=== PATIENT | male | born 1935 | race Caucasian/White ===

== ENCOUNTER 2017-03-04 09:03 | Outpatient (CLI) | payer MEDICARE, OTHER | END 2017-03-04 09:04 | disposition critical access hospital (66) | LOC: EMS 09:03 | PROVIDERS: ATTEND Surgery | DX: R55 Syncope and collapse (principal) | CPT/HCPCS: A0425; A0427 ==

== ENCOUNTER 2017-03-04 09:25 | Emergency (ER) | payer MEDICARE, OTHER ==
--- NOTE | 2017-03-04 09:46 | ED Physician Documentation ---
History of Present Illness - Stated complaint Stated Complaint: SYNCOPE - Chief complaint Chief Complaint: Neuro - Additonal information Additional information: hx from pt and EMS 81 male was fasting for blood work this AM - has appt with PMD to [facility] RLE swelling X 2 weeks went to scientology with and friends syncope while sitting in chair EMS arrived and found pt orthostatic given IVF now he feels fine denies fall no fever no cough no NVD no new urinary sx (see a urologist for chronic troubles ) no CP SOA abd pain Review of Systems Constitutional: denies: Fever, Chills Throat: denies: Sore throat Cardiac: denies: Chest pain / pressure, Palpitations Respiratory: denies: Dyspnea, Cough GI: denies: Abdominal Pain, Nausea, Vomiting, Diarrhea Musculoskeletal: reports: Extremity swelling (L chronic R new X 2 wk per EMS) Neurologic: reports: Syncope. denies: Generalized weakness, Altered mental status, Head injury Endocrine: denies: Easy bruising / bleeding Immunocompromised: denies: Immunocompromised PD PAST MEDICAL HISTORY - Past Medical History Cardiovascular: Hypertension, High cholesterol GI: GERD Musculoskeletal: Rheumatoid arthritis - Past Surgical History Past Surgical History: Yes Ortho: Hip replacement - Present Medications Home Medications: Ambulatory Orders Medication Instructions Recorded Confirmed Aspirin 1 tab PO DAILY 05/11/16 05/11/16 Esomeprazole Magnesium [Nexium] 1 cap PO DAILY 05/11/16 05/11/16 Finasteride 1 tab PO DAILY 05/11/16 05/11/16 Fluticasone [Flonase] 1 spray NS DAILY 05/11/16 05/11/16 Furosemide [Lasix] 20 mg PO DAILY 05/11/16 05/11/16 Ibuprofen [Motrin] 1 tab PO TID 05/11/16 05/11/16 Resveratrol 100 mg PO DAILY 05/11/16 Simvastatin [Zocor] 20 mg PO DAILY 05/11/16 05/11/16 Telmisartan [Micardis] 1 tab PO QID 05/11/16 05/11/16 amLODIPine [Norvasc] 1 tab PO BID 05/11/16 05/11/16 Cephalexin [Keflex] 500 mg PO Q6H #28 capsule 03/04/17 - Allergies Allergies/Adverse Reactions: Allergies Allergy/AdvReac Type Severity Reaction Status Date / Time No Known Drug Allergies Allergy Verified 05/11/16 20:55 - Social History Does the pt smoke?: No Smoking Status: Never smoker Does the pt drink ETOH?: No Does the pt have substance abuse?: No - Immunizations Immunizations are current?: No - POLST Patient has POLST: No PD ED PE NORMAL - Vitals Vital signs reviewed: Yes - General General: Other (alert cooperative oriented cheeerful) - HEENT HEENT: Atraumatic - Neck Neck: Supple, no meningeal sign - Cardiac Cardiac: RRR - Respiratory Respiratory: No respiratory distress, Clear bilaterally - Abdomen Abdomen: Soft, Non tender - Derm Derm: Normal color - Extremities Extremities: No deformity, Other (mild benjamín edema, non tender, per EMS RLE is new) - Neuro Neuro: Other (alert, moving all 4 ext) Results - Vitals Vitals: Vital Signs - 24 hr 03/04/17 03/04/17 09:28 11:41 Temperature 36.5 C Heart Rate 65 77 Respiratory 16 16 Rate Blood Pressure 139/73 H 124/61 O2 Saturation 97 97 Oxygen O2 Source Room air - EKG (time done) 1101 Rate: Rate (enter#) (67) Rhythm: NSR Intervals: Wide QRS (boerderline) Ischemia: Q waves (borderline but much less than half R-R) - Labs Labs: Laboratory Tests 03/04/17 03/04/17 03/04/17 09:46 10:40 10:48 WBC 5.3 RBC 3.66 L Hgb 11.6 L Hct 32.8 L MCV 89.6 MCH 31.7 H MCHC 35.4 RDW 13.6 Plt Count 136 MPV 8.3 Neut # 3.0 Lymph # 1.3 L [place] # 0.7 Eos # 0.3 Baso # 0.0 Absolute Nucleated RBC 0.00 Nucleated RBCs 0.0 Sodium 131 L Potassium 3.9 Chloride 97 L Carbon Dioxide 26 Anion Gap 8.0 BUN 19 Creatinine 1.3 H Estimated GFR (MDRD) 53 L Glucose 116 H Calcium 9.1 Urine Color YELLOW Urine Clarity SL. CLOUDY Urine pH 6.0 Ur Specific [place] <=1.005 Urine Protein NEGATIVE Urine Glucose (UA) NEGATIVE Urine Ketones NEGATIVE Urine Occult Blood NEGATIVE Urine Nitrite NEGATIVE Urine Bilirubin NEGATIVE Urine Urobilinogen 0.2 (NORMAL) Ur Leukocyte Esterase TRACE H Urine RBC 0-5 Urine WBC 11-25 H Urine WBC Clumps PRESENT Ur Squamous Epith Cells NONE SEEN Urine Bacteria Few Ur Microscopic Review INDICATED Urine Culture Comments INDICATED - Rads (name of study) doppler Radiology: See rad report (neg) Departure - Departure Disposition: Home, Self Care Clinical Impression: Dehydration, Orthostatic syncope UTI (urinary tract infection) Qualifiers: Urinary tract infection type: acute cystitis Hematuria presence: without hematuria Qualified Code(s): N30.00 - Acute cystitis without hematuria Condition: Good Instructions: ED UTI Cystitis Male, ED Dehydration, Syncope Causes Follow-Up: Vahid Naranjo MD [Primary Care Provider] - Prescriptions: Cephalexin [Keflex] 500 mg PO Q6H #28 capsule Comments: You were dehydrated and your blood pressure was low and we think that is why you passed out at scientology You are feeling better after IV fluids Your lab work was reassuring except for mild anemia which is not new and some mild renal insufficiency which you should see your doctor about. Your EKG was a regular rhythm but did show a slightly prolonged QT interval which you should also follow up with your doctor about - sometimes some of your medications need to be stopped or adjusted to prevent this from occurring or worsening You do not have a blood clot in your leg. And you have a urine infection so I have prescribed an antibiotic
[2017-03-04 09:52] LABS: BASOPHILS % (AUTO) 0.8 %; EOSINOPHILS # (AUTO) 0.3 10^3/uL (0.0-0.7); EOSINOPHILS % (AUTO) 5.7 %; HCT - HEMATOCRIT 32.8 % (42.0-52.0); HGB - HEMOGLOBIN 11.6 g/dL (14.0-18.0); LYMPHOCYTES # (AUTO) 1.3 10^3/uL (1.5-3.5); MEAN CORPUSCULAR HEMOGLOBIN 31.7 pg (27.0-31.0); MEAN CORPUSCULAR HGB CONC 35.4 g/dL (32.0-36.0); MEAN CORPUSCULAR VOLUME 89.6 fL (80.0-94.0); MEAN PLATELET VOLUME 8.3 fL (7.4-11.4); MONOCYTES # (AUTO) 0.7 10^3/uL (0.0-1.0); MONOCYTES % (AUTO) 13.7 %; NEUTROPHILS % (AUTO) 55.8 %; RED BLOOD COUNT 3.66 10^6/uL (4.70-6.10); RED CELL DISTRIBUTION WIDTH 13.6 % (12.0-15.0); UNCORRECTED WHITE BLOOD COUNT 5.3 x10^3/uL; WHITE BLOOD COUNT 5.3 x10^3/uL (4.8-10.8)
--- NOTE | 2017-03-04 10:44 | Ultrasound Report ---
RIGHT LEG VENOUS DUPLEX: 03/04/2017 CLINICAL INDICATION: Right leg swelling for two weeks. TECHNIQUE: Real-time sonographic vascular imaging was performed by the anesthesiologist physician through the right lower extremity utilizing both color flow and Doppler spectral analysis. Multiple textile machinery sales representative stat ic images were saved for review. FINDINGS: A right lower extremity venous sonogram is performed revealing the common femoral, superfic ial femoral, profunda femoris, and popliteal veins to be adequately visualized without intraluminal d efects. There is normal venous compression, augmentation, phasicity, and spontaneity of venous flow. In the calf, the visualized more cephalad portions of posterior tibial and peroneal veins are grossly compressible, without filling defects. IMPRESSION: NO EVIDENCE OF DEEP VENOUS THROMBOSIS. JOB #: [id number] EXT JOB #:[id number]
[2017-03-04 10:58] LABS: CALCIUM 9.1 mg/dL (8.5-10.3); CREATININE 1.3 mg/dL (0.6-1.2); POTASSIUM 3.9 mmol/L (3.5-5.0)
[2017-03-04 11:03] LABS: BILIRUBIN,URINE NEGATIVE (NEGATIVE)
[2017-03-04 11:04] LABS: UA w/ MICROSCOPIC CHARGE YES
[2017-03-04 11:17] LABS: UR CULTURE IF IND INDICATED
[2017-03-04 12:35] VITALS: BP 113/64
== END 2017-03-04 12:34 | disposition home or self-care (01) ==
LOC: EDUNIT# → ED 09:25
DX: R55 Syncope and collapse (principal); N30.00 Acute cystitis without hematuria; I10 Essential (primary) hypertension; E78.00 Pure hypercholesterolemia, unspecified; K21.9 Gastro-esophageal reflux disease without esophagitis; M06.9 Rheumatoid arthritis, unspecified; Z79.82 Long term (current) use of aspirin
CPT/HCPCS: 36415; 80048; 81001; 81003; 85025; 87086; 93005; 93010; 99284

== ENCOUNTER 2017-09-01 17:55 | Outpatient (CLI) | payer MEDICARE, OTHER | END 2017-09-01 17:56 | disposition critical access hospital (66) | LOC: EMS 17:55 | PROVIDERS: ATTEND Surgery | DX: R40.4 Transient alteration of awareness (principal) | CPT/HCPCS: A0425; A0429 ==

== ENCOUNTER 2017-09-01 18:00 | Emergency (ER) | payer MEDICARE, OTHER ==
[2017-09-01] MEDS ORDERED: SODIUM CHLORIDE 0.9% 1,000 ML IV ONE ×2 (18:21→18:50)
[2017-09-01 18:27] LABS: BASOPHILS % (AUTO) 0.4 %; EOSINOPHILS # (AUTO) 0.3 10^3/uL (0.0-0.7); EOSINOPHILS % (AUTO) 3.6 %; HCT - HEMATOCRIT 28.9 % (42.0-52.0); LYMPHOCYTES # (AUTO) 1.1 10^3/uL (1.5-3.5); LYMPHOCYTES % (AUTO) 14.8 %; MEAN CORPUSCULAR HEMOGLOBIN 30.9 pg (27.0-31.0); MEAN CORPUSCULAR HGB CONC 34.7 g/dL (32.0-36.0); MEAN PLATELET VOLUME 7.1 fL (7.4-11.4); MONOCYTES % (AUTO) 13.3 %; NEUTROPHILS % (AUTO) 67.9 %; RED BLOOD COUNT 3.25 10^6/uL (4.70-6.10); RED CELL DISTRIBUTION WIDTH 13.5 % (12.0-15.0); UNCORRECTED WHITE BLOOD COUNT 7.3 x10^3/uL; WHITE BLOOD COUNT 7.3 x10^3/uL (4.8-10.8)
[2017-09-01 18:42] LABS: ALBUMIN/GLOBULIN RATIO 0.9 (1.0-2.2); BILIRUBIN,TOTAL 1.1 mg/dL (0.2-1.0); CALCIUM 8.6 mg/dL (8.5-10.3); CREATININE 0.8 mg/dL (0.6-1.2); POTASSIUM 3.7 mmol/L (3.5-5.0); TOTAL PROTEIN 6.3 g/dL (6.7-8.2)
--- NOTE | 2017-09-01 18:53 | ED Physician Documentation ---
PD HPI SYNCOPE - Stated complaint Stated Complaint: SYNCOPE - Chief complaint Chief Complaint: Neuro - History obtained from History obtained from: Patient, Family, EMS - History of Present Illness Witnessed: Witnessed Timing - onset: Today Duration: Seconds (30) Preceding symptoms: Light headed, Generalized weakness Associated symptoms: No: Seizure, Incontinant of urine, Incontinant of stool, Headache, Vision changes, Chest pain, Palpitations Injury occurred: No: Fell, Head injury, Neck injury Pain level max: 0 Pain level now: 0 Similar symptoms before: Diagnosis (Patient also has an episode of vasovagal syncope approximately 6 months ago.) - Additional information Additional information: Patient is an 82-year-old gentleman who is one-week status post a 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 This was performed [facility]. He was doing physical therapy today, began to feel lightheaded and dizzy, began to be shaky and was laid down on the ground by the rehab facility. They took his blood pressure and it was 60 systolic. Unclear if he actually passed out or not, but does not sound like he ever actually lost consciousness. EMS arrived and his blood pressure started to increase. He currently feels well and is asymptomatic. Review of Systems Ten Systems: 10 systems reviewed and negative Constitutional: denies: Fever, Chills Ears: denies: Ear pain Nose: denies: Rhinorrhea / runny nose, Congestion Throat: denies: Sore throat Cardiac: denies: Chest pain / pressure, Palpitations Respiratory: denies: Dyspnea, Cough, Hemoptysis, Wheezing GI: denies: Abdominal Pain, Nausea, Vomiting, Diarrhea Skin: denies: Rash Musculoskeletal: denies: Neck pain, Back pain Neurologic: denies: Focal weakness, Numbness, Confused, Altered mental status, Headache PD PAST MEDICAL HISTORY - Past Medical History Cardiovascular: Hypertension, High cholesterol GI: GERD Musculoskeletal: Rheumatoid arthritis - Past Surgical History Past Surgical History: Yes Ortho: Hip replacement - Present Medications Home Medications: Ambulatory Orders Medication Instructions Recorded Confirmed Aspirin 1 tab PO DAILY 05/11/16 05/11/16 Esomeprazole Magnesium [Nexium] 1 cap PO DAILY 05/11/16 05/11/16 Finasteride 1 tab PO DAILY 05/11/16 05/11/16 Fluticasone [Flonase] 1 spray NS DAILY 05/11/16 05/11/16 Furosemide [Lasix] 20 mg PO DAILY 05/11/16 05/11/16 Ibuprofen [Motrin] 1 tab PO TID 05/11/16 05/11/16 Resveratrol 100 mg PO DAILY 05/11/16 Simvastatin [Zocor] 20 mg PO DAILY 05/11/16 05/11/16 Telmisartan [Micardis] 1 tab PO QID 05/11/16 05/11/16 amLODIPine [Norvasc] 1 tab PO BID 05/11/16 05/11/16 Cephalexin [Keflex] 500 mg PO Q6H #28 capsule 03/04/17 - Allergies Allergies/Adverse Reactions: Allergies Allergy/AdvReac Type Severity Reaction Status Date / Time No Known Drug Allergies Allergy Verified 09/01/17 19:29 - Social History Does the pt smoke?: No Smoking Status: Never smoker Does the pt drink ETOH?: No Does the pt have substance abuse?: No - Immunizations Immunizations are current?: No - POLST Patient has POLST: No PD ED PE NORMAL - Vitals Vital signs reviewed: Yes - General General: Alert and oriented X 3, No acute distress, Well developed/nourished - HEENT HEENT: Atraumatic, PERRL, Moist mucous membranes - Neck Neck: Supple, no meningeal sign, No bony TTP - Cardiac Cardiac: RRR, Strong equal pulses - Respiratory Respiratory: No respiratory distress, Clear bilaterally - Abdomen Abdomen: Soft, Non tender, Non distended - Back Back: No spinal TTP - Derm Derm: Warm and dry - Extremities Extremities: No edema, No calf tenderness / cord - Neuro Neuro: Alert and oriented X 3, professor of communication 2-12 intact, No motor deficit, No sensory deficit, Normal speech Eye Opening: Spontaneous Motor: Obeys Commands Verbal: Oriented GCS Score: 15 - Psych Psych: Normal mood, Normal affect Results - Vitals Vitals: Oxygen O2 Source Room air - EKG (time done) 1805 Rate: Rate (enter#) (79) Rhythm: NSR [place]: Normal Intervals: Normal FL, RBBB - Labs Labs: Laboratory Tests 09/01/17 09/01/17 09/01/17 18:22 18:22 18:22 WBC 7.3 RBC 3.25 L Hgb 10.0 L Hct 28.9 L MCV 89.0 MCH 30.9 MCHC 34.7 RDW 13.5 Plt Count 207 MPV 7.1 L Neut # 5.0 Lymph # 1.1 L [place] # 1.0 Eos # 0.3 Baso # 0.0 Absolute Nucleated RBC 0.00 Nucleated RBC % 0.0 Sodium 125 L Potassium 3.7 Chloride 88 L Carbon Dioxide 24 Anion Gap 13.0 BUN 12 Creatinine 0.8 Estimated GFR (MDRD) 93 Glucose 126 H Calcium 8.6 Total Bilirubin 1.1 H AST 29 ALT 20 Alkaline Phosphatase 49 Troponin I < 0.04 Total Protein 6.3 L Albumin 3.0 L Globulin 3.3 Albumin/Globulin Ratio 0.9 L Lipase 36 Urine Color Urine Clarity Urine pH Ur Specific [place] Urine Protein Urine Glucose (UA) Urine Ketones Urine Occult Blood Urine Nitrite Urine Bilirubin Urine Urobilinogen Ur Leukocyte Esterase Ur Microscopic Review Urine Culture Comments 09/01/17 19:10 WBC RBC Hgb Hct MCV MCH MCHC RDW Plt Count MPV Neut # Lymph # [place] # Eos # Baso # Absolute Nucleated RBC Nucleated RBC % Sodium Potassium Chloride Carbon Dioxide Anion Gap BUN Creatinine Estimated GFR (MDRD) Glucose Calcium Total Bilirubin AST ALT Alkaline Phosphatase Troponin I Total Protein Albumin Globulin Albumin/Globulin Ratio Lipase Urine Color YELLOW Urine Clarity CLEAR Urine pH 7.0 Ur Specific [place] 1.010 Urine Protein NEGATIVE Urine Glucose (UA) NEGATIVE Urine Ketones NEGATIVE Urine Occult Blood NEGATIVE Urine Nitrite NEGATIVE Urine Bilirubin NEGATIVE Urine Urobilinogen 0.2 (NORMAL) Ur Leukocyte Esterase NEGATIVE Ur Microscopic Review NOT INDICATED Urine Culture Comments NOT INDICATED PD MEDICAL DECISION MAKING - ED course Complexity details: reviewed old records, reviewed results, re-evaluated patient , considered differential (No ST elevation [place], no aortic dissection, no PE, no tension pneumothorax, no aortic aneurysm), d/w patient, d/w family ED course: Patient is an 82-year-old gentleman that presents to the emergency department with what appears to be near syncope versus syncope today. He was given IV fluids and feels much better. Blood pressure normalized. He is well-appearing , nontoxic. Afebrile. No acute laboratory findings. No acute findings on EKG or telemetry. Does not wish to stay in the hospital for telemetry monitoring at this time and I think this is reasonable. Will follow up with his doctor for further evaluation and care. Patient also found to be mildly hyponatremic from his baseline, given IV fluids and this should improve with the IV fluids. Can be retested with his doctor. Patient counseled regarding signs and symptoms for which I believe and urgent re-evaluation would be necessary. Patient with good understanding of and agreement to plan and is comfortable going home at this time This document was made in part using voice recognition software. While efforts are made to proofread this document, sound alike and grammatical errors may occur. Departure - Departure Disposition: 01 Home, Self Care Clinical Impression: Orthostatic syncope, Hyponatremia, Dehydration Condition: Good Instructions: ED Syncope Vasovagal Follow-Up: Vahid Naranjo MD [Primary Care Provider] - Within 3 Days Comments: Drink plenty of fluids and make sure you are eating. Return if you worsen. Discharge Date/Time: 09/01/17 20:00
[2017-09-01 19:56] LABS: BILIRUBIN,URINE NEGATIVE (NEGATIVE)
[2017-09-01 20:00] LABS: UA CHARGE (STRIP ONLY) YES; UR CULTURE IF IND NOT INDICATED
[2017-09-01 20:08] VITALS: BP 167/83
== END 2017-09-01 20:00 | disposition home or self-care (01) ==
LOC: EDBD → ED 18:00
DX: R55 Syncope and collapse (principal); E86.0 Dehydration; E87.1 Hypo-osmolality and hyponatremia; I10 Essential (primary) hypertension; E78.00 Pure hypercholesterolemia, unspecified; K21.9 Gastro-esophageal reflux disease without esophagitis; M06.9 Rheumatoid arthritis, unspecified; Z79.82 Long term (current) use of aspirin; Z96.641 Presence of right artificial hip joint
CPT/HCPCS: 36415; 80053; 81001; 81003; 83690; 84484; 85025; 87086; 93005; 96360; 96361; 99284

== ENCOUNTER 2018-05-21 10:44 | Outpatient (CLI) | payer MEDICARE, OTHER | END 2018-05-21 10:45 | disposition short-term general hospital (02) | LOC: EMS 10:44 | PROVIDERS: ATTEND Surgery | DX: R55 Syncope and collapse (principal) | CPT/HCPCS: A0425; A0427; A0888 ==

== ENCOUNTER 2020-04-08 17:11 | Outpatient (CLI) | payer MEDICARE, OTHER | END 2020-04-08 17:12 | disposition critical access hospital (66) | LOC: EMS 17:11 | PROVIDERS: ATTEND Surgery | DX: M79.632 Pain in left forearm (principal); W10.9XXA Fall (on) (from) unspecified stairs and steps, initial encounter; Y93.01 Activity, walking, marching and hiking; Y92.008 Other place in unspecified non-institutional (private) residence as the place of occurrence of the external cause | CPT/HCPCS: A0425; A0429 ==

== ENCOUNTER 2022-06-09 19:47 | Outpatient (CLI) | payer MEDICARE, OTHER | END 2022-06-09 19:48 | disposition short-term general hospital (02) | LOC: EMS 19:47 | DX: R07.89 Other chest pain (principal) | CPT/HCPCS: A0425; A0427; A0888 ==

== ENCOUNTER 2023-05-18 16:35 | Emergency (ER) | payer MEDICARE, OTHER ==
--- OUTSIDE RECORDS SUMMARY | 2023-05-18 17:40 | EXTERNAL MEDICAL SUMMARY RPT | Continuity of Care Document ---
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
[2023-05-19 10:59] VITALS: BP 160/86; O2SAT 96
== END 2023-05-18 18:07 | disposition left against medical advice (07) ==
LOC: ED 16:35
DX: Z53.21 Procedure and treatment not carried out due to patient leaving prior to being seen by health care provider (principal)

== ENCOUNTER 2025-01-02 15:22 | Inpatient (IN) ==
--- OUTSIDE RECORDS SUMMARY | 2025-01-02 15:46 | EXTERNAL MEDICAL SUMMARY RPT | Continuity of Care Document ---
Author Organization [facility] Address [address] [place] [id number] Phone Care Team Providers Care Edge Molder Name Role Phone Unavailable Unavailable Unavailable Vahid Naranjo Unavailable Unavailable Medications date description facility 2024-12-21 00:00 Amlodipine [facility] 2024-12-21 00:00 Sodium Chloride [facility] 2024-12-21 00:00 Metoprolol Succinate [facility] Problems date description facility 2024-10-09 11:01 Encounter for observ ation for other suspected diseases and conditions ruled out [facility] 2024-11-12 10:42 Weakness [facility] 2024-11-12 10:42 Encounter for examin ation and observation following other accident [facility] 2024-12-15 00:00 Hypertension [facility] 2024-12-15 00:00 Subarachnoid hemorrhage [facility] 2024-12-15 00:00 Intraparenchymal hemorrhage of brain [facility] 2024-12-16 11:45 Nontraumatic intracranial hemor rhage, unspecified [facility] 2024-12-17 10:52 [facility] 2024-12-17 12:09 Nontraumatic intracranial hemor rhage, unspecified [facility] 2024-12-17 19:24 Nontraumatic intracranial hemor rhage, unspecified [facility] 2024-12-18 10:29 Nontraumatic intracranial hemor rhage, unspecified [facility] 2024-12-18 15:47 Nontraumatic intracranial hemor rhage, unspecified [facility] 2024-12-19 16:24 Nontraumatic intracranial hemor rhage, unspecified [facility] 2024-12-21 10:28 Nontraumatic intracranial hemor rhage, unspecified [facility] 2024-12-21 13:29 Nontraumatic intracranial hemor rhage, [facility] Procedures date description facility 2024-12-15 00:00 Computed tomography of head or brain without contrast [facility] 2024-12-17 00:00 Computed tomography of head or brain without contrast [facility] 2024-12-15 00:00 X-ray of chest, single view [facility] 2024-12-15 00:00 Computed tomography of cervical spine without contrast [facility] Results/Labs test date facility value unit notes Result panel 1 [facility] TEST [facility] 2024-09-28 15:05 [facility] COMMENT (missing) [id number] AMIODARONE [id number] AMIODARONE Test Ordered: [id number] AMIODARONE (CORDARONE), S/P AMIODARONE 543 [L ] ng/mL MX Reference Range: 7846-3455 DESETHYLAMIODARONE 667 ng/mL MX Reference Range: . Note: To convert from ng/ml to ug/ml, divide the result by 1000. Reference range (amiodarone): 1.00-2.50 ug/mL. This test was developed and its performance characteristics determined by [facility]. It has not been cleared or approved by the Food and Drug Administration. Performed at: [facility] [address] [place] [id number] Balance Wheel Arm Burnisher: Migdalia Read [facility], Phone: [phone] Performed at: [facility] [id number] Balance Wheel Arm Burnisher: Akin Parra MD, Phone: [phone] [facility] LAB ORDER 2024-09-28 15:[address] [place] [address] COMPLETE (missing) [id number] Amiodarone (Cordarone), Serum Result panel 2 NUCLEATED RED BLOOD CELLS AUTO 2024-11-08 :[address] [place] [address] 0.0 /100wbc (missing ) BASOPHILS # (AUTO) 2024-11-08 15:[address] [place] [address] 0.0 10 3/ul (missing) NRBC ABSOLUTE COUNT (AUTO) 2024-11-08 :[address] [place] [address] 0.00 x10 3/ul (missing ) EOSINOPHILS # (AUTO) 2024-11-08 :[address] [place] [address] 0.1 10 3/ul (missing) BILIRUBIN,TOTAL 2024-11-08 :[address] [place] [address] 0.5 m g/dl As of March 2023 testing method has changed, this may include reference ranges. MONOCYTES # (AUTO) 2024-11-[address] [place] [address] 0.8 10 3/ul (missing) ALBUMIN/GLOBULIN RATIO 2024-11-[address] [place] [address] 1.7 (missing) (missing) LYMPHOCYTES # (AUTO) 2024-11-[address] [place] [address] 1.8 10 3/ul (missing) CREATININE 2024-11-[address] [place] [address] 1.8 mg/dl As of March 2023 testing method has changed, this may include reference ranges. MEAN PLATELET VOLUME 2024-11-[address] [place] [address] 10.7 fl (missing) CHLORIDE 2024-11-[address] [place] [address] 100 mmol/l As of March 2023 testing method has changed, this may include reference ranges. ALT ALANINE AMINOTRANSFERASE 2024-11-[address] [place] [address] 12 iu/l As o f March 2023 testing method has changed, this may include reference ranges. HGB - HEMOGLOBIN 2024-11-[address] [place] [address] 12.6 g/dl (missing) GLUCOSE 2024-11-[address] [place] [address] 121 mg/dl As of March 2023 testing method has changed, this may include reference ranges. RED CELL DISTRIBUTION WIDTH 2024-11-[address] [place] [address] 13.0 % (missing ) SODIUM 2024-11-[address] [place] [address] 133 mmol/l As of March 2023 testing method has changed, this may include reference ranges. PLT - PLATELET COUNT 2024-11-[address] [place] [address] 146 10 3/ul (missing) AST ASPARTATE AMINOTRANSFERASE 2024-11-[address] [place] [address] 17 iu/l As o f March 2023 testing method has changed, this may include reference ranges. GLOBULIN 2024-11-[address] [place] [address] 2.2 g/dl (missing) CARBON DIOXIDE - CO2 2024-11-[address] [place] [address] 27 mmol/l As of March 2023 testing method has changed, this may include reference ranges. NEUTROPHILS # (AUTO) 2024-11-[address] [place] [address] 3.7 10 3/ul (missing) ALBUMIN 2024-11-[address] [place] [address] 3.8 g/dl As of March 2023 testing method has changed, this may include reference ranges. BUN - BLOOD UREA NITROGEN 2024-11-[address] [place] [address] 31 mg/dl As of 2022 testing method has changed, this may include reference ranges. MEAN CORPUSCULAR HEMOGLOBIN 2024-11-08 15:54 [facility] 31.3 pg (missing ) MEAN CORPUSCULAR HGB CONC 2024-11-08 15:54 [facility] 34.5 g/dl (missing ) GFR - MDRD 2024-11-08 15:54 [facility] 36 ([facility]) Social History date description facility 2024-12-15 00:00 Ex-smoker (finding) [facility] Vital Signs date measurement value units 2024-12-15 00:00 BMI 24.4 kg/m2 2024-12-15 00:00 BP_diastolic 82 mmHg 2024-12-15 00:00 BP_systolic 153 mmHg 2024-12-15 00:00 heart_rate 90 /min 2024-12-15 00:00 height_metric 182.88 cm 2024-12-15 00:00 height_standard 72 in 2024-12-15 00:00 o2_saturation 96 % 2024-12-15 00:00 respiration_rate 19 /min 2024-12-15 00:00 temperature_metric 36.33 C 2024-12-15 00:00 temperature_standard 97.4 F 2024-12-15 00:00 weight_metric 81.64 kg 2024-12-15 00:00 weight_standard 179.99 lb 2024-12-21 00:00 BP_diastolic 72 mmHg 2024-12-21 00:00 BP_systolic 142 mmHg 2024-12-21 00:00 heart_rate 75 /min 2024-12-21 00:00 o2_saturation 99 % 2024-12-21 00:00 respiration_rate 16 /min 2024-12-21 00:00 temperature_metric 36.33 C 2024-12-21 00:00 temperature_standard 97.4 F
[2025-01-02 16:41] LABS: BASOPHILS % (AUTO) 0.5 %; EOSINOPHILS % (AUTO) 0.5 %; HCT - HEMATOCRIT 33.4 % (42.0-52.0); LYMPHOCYTES % (AUTO) 15.7 %; MEAN CORPUSCULAR HGB CONC 35.9 g/dL (32.0-36.0); MEAN CORPUSCULAR VOLUME 89.1 fL (80.0-94.0); MEAN PLATELET VOLUME 10.5 fL (7.4-11.4); MONOCYTES # (AUTO) 0.8 10^3/uL (0.0-1.0); MONOCYTES % (AUTO) 12.7 %; NEUTROPHILS # (AUTO) 4.3 10^3/uL (1.5-6.6); NEUTROPHILS % (AUTO) 69.8 %; PLT - PLATELET COUNT 132 10^3/uL (130-450); RED BLOOD COUNT 3.75 10^6/uL (4.70-6.10); RED CELL DISTRIBUTION WIDTH 12.9 % (12.0-15.0); WHITE BLOOD COUNT 6.1 x10^3/uL (4.8-10.8)
--- NOTE | 2025-01-02 16:43 | XRAY Report ---
PROCEDURE: XR Chest 1V INDICATIONS: syncope TECHNIQUE: One view of the chest was acquired. COMPARISON: 11/08/2024. FINDINGS: Surgical changes and devices: None. Lungs and pleura: No pleural effusions or pneumothorax. No consolidation. Mediastinum: Mediastinal contours appear normal. Heart size is normal. Bones and chest wall: No suspicious bony lesions. Overlying soft tissues appear unremarkable. IMPRESSION: No acute cardiopulmonary process. Reviewed by: Abraham Barnett MD on 01/02/2025 4:42 PM PDT Approved by: Abraham Barnett MD on 01/02/2025 4:42 PM PDT Station ID: [id number]
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
[2025-01-02 16:48] LABS: ALBUMIN 3.7 g/dL (3.2-5.5); ALBUMIN/GLOBULIN RATIO 1.5 (1.0-2.2); BILIRUBIN,TOTAL 0.5 mg/dL (0.2-1.0); CALCIUM 8.8 mg/dL (8.5-10.3); CREATININE 1.2 mg/dL (0.6-1.3); POTASSIUM 3.1 mmol/L (3.5-4.5); TOTAL PROTEIN 6.2 g/dL (6.4-8.9)
[2025-01-02 16:56] LABS: TROPONIN I HIGH SENSITIVITY 13.3 ng/L (2.3-19.7)
[2025-01-02] MEDS: SODIUM CHLORIDE 0.9% 500 ML IV STA (18:20)
--- NOTE | 2025-01-02 18:30 | CT Report ---
PROCEDURE: CT Head WO INDICATIONS: fall 1 week ago, reported head bleed at [facility] TECHNIQUE: Noncontrast 4.5 mm thick angled axial sections acquired from the foramen magnum to the vertex. For r adiation dose reduction, the following was used: automated exposure control, adjustment of mA and/or kV according to patient size. COMPARISON: [facility] CT head 12/15/2024. FINDINGS: Image quality: Excellent. CSF spaces: Basal cisterns are patent. No extra-axial fluid collections. Ventricles are normal in size and shape. Brain: Mild residual intraparenchymal hemorrhage within the anteromedial left frontal lobe is signif icantly improved compared to prior outside study. Other areas of subarachnoid hemorrhage have resolve d. No midline shift. No intracranial mass effect. Serra-white matter interface is normal. Skull and face: Calvarium and visualized facial bones are intact, without suspicious lesions. Sinuses: Prior endoscopic sinonasal surgery with mild mucosal thickening. The mastoids are clear. IMPRESSION: 1.Mild residual intraparenchymal hemorrhage within the anteromedial left frontal lobe is significantl y improved compared to prior. Other areas of subarachnoid hemorrhage have resolved. 2.No new areas of intracranial hemorrhage. Reviewed by: Benson Sanon MD on 01/02/2025 6:28 PM PDT Approved by: Benson Sanon MD on 01/02/2025 6:28 PM PDT Station ID: [id number]
--- NOTE | 2025-01-02 19:59 | HISTORY & PHYSICAL EXAMINATION ---
Chief Complaint Chief Complaint Chief Complaint: syncope History of Present Illness Admitted From Admitted From:: [facility] History Obtained From Records Reviewed: [facility] patient records History obtained from: Patient- limited History of Present Illness HPI Comment/Other: 89-year-old male who presents to the emergency department with a syncopal episode. Recently admitted to [facility] on 12/21/2024. Exact reason for admission is unknown as there is no reliable historian at the bedside. In any event apparently has a history of orthostatic hypotension and recurrent syncope. However got up this afternoon had a bowel movement and as he was moving back over to bed had a syncopal event. Reportedly was hypotensive on scene. Therefore was transferred to the emergency department. Reportedly while in the emergency department had another syncopal episode when attempt was made to stand him upright. Did have orthostatic vital signs taken and these were not positive. EKG is unrevealing as has been telemetry since he has been in the emergency department. Patient is reportedly at his baseline mental status has not shown any other neurologic abnormalities. He is a very poor historian. He is oriented to self only. He does come to us with copy of a POLST which shows DNR selective treatment. His signed the POLST. Meds/Allgy Home Medications Ambulatory Orders Medication Instructions Recorded Confirmed Resveratrol 100 mg PO DAILY 05/11/16 amlodipine 5 mg tablet 1 tab PO BID 05/11/16 05/11/16 aspirin 81 mg chewable tablet 1 tab PO DAILY 05/11/16 05/11/16 esomeprazole magnesium 40 mg 1 cap PO DAILY 05/11/16 05/11/16 capsule,delayed release (Nexium) finasteride 5 mg tablet 1 tab PO DAILY 05/11/16 05/11/16 fluticasone propionate 50 1 spray NS DAILY 05/11/16 05/11/16 mcg/actuation nasal spray,suspension furosemide 20 mg tablet 20 mg PO DAILY 05/11/16 05/11/16 ibuprofen 600 mg tablet 1 tab PO TID 05/11/16 05/11/16 simvastatin 40 mg tablet (Zocor) 20 mg PO DAILY 05/11/16 05/11/16 telmisartan 40 mg tablet (Micardis) 1 tab PO QID 05/11/16 05/11/16 cephalexin 500 mg capsule (Keflex) 500 mg PO Q6H ##28 03/04/17 Allergies Allergies Allergy/AdvReac Type Severity Reaction Status Date / Time No Known Drug Allergies Allergy Verified 01/02/25 15:34 PFSH Active Problems All Active Problems (Updated 01/02/25 @ 21:[address]) Hypokalemia (Acute) Atrial fibrillation (Acute) Syncope (Acute) Fall (Acute) Weakness (Acute) Social History Social History Smoking Status: Never smoker Relationship: Do you feel safe in your home environment?: Yes Suffered physical, verbal, emotional, or financial abuse?: No History of Abuse: No POLST Patient has POLST: Yes POLST Status: DNR Review of Systems Status of ROS: unobtainable due to mental status Prior Level of Functionality: oriented to self only. it is unclear what his baseline ambulatory status is. Exam Exam Vital Signs: Vital Signs x48h Temp Pulse Pulse Pulse Resp BP BP 01/02/25 19:08 95 16 148/86 H 01/02/25 17:46 96 71 137/75 H 01/02/25 16:30 88 20 153/89 H 01/02/25 15:29 36.6 C 66 20 140/70 H BP Pulse Ox 01/02/25 19:08 98 01/02/25 17:46 134/88 H 01/02/25 16:30 94 01/02/25 15:29 98 Constitutional normal general appearance and no apparent distress HENMT normocephalic, hearing grossly normal bilaterally and oral mucous membranes normal Eyes PERRL and conjunctivae normal Neck/C-Spine visual inspection normal Lymph no lymphadenopathy noted Chest inspection of chest normal Respiratory breath sounds equal bilaterally, normal respiratory effort and clear to auscultation bilaterally Cardiovascular normal heart rate noted, regular rhythm noted and no bruits noted Gastrointestinal abdomen normal to inspection and abdomen soft to palpation Extremities normal to inspection, normal to palpation and no tenderness no pedal edema 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 GCS 14 ([id number]) Psychiatry oriented x3 (oriented to self. knows is [place]), cooperative and memory abnormal Pleasantly confused. Skin skin color normal and no rash Conclusion/Plan Problem List (1) Syncope: Plan: negative orthostatics in the ED. He did, however, syncopize again in the ED when he was placed upright. Discussed with Dr Mobley in the ED and decision was made to admit to OBS for further eval and treatment of his syncope. Will gently hydrate overnight with IVF, and repeat orthostatics and have PT/OT evaluation in the AM. I will keep the patient on telemetry monitoring and obtain an echocardiogram as well. Qualifiers: Syncope type: unspecified Qualified Code(s): R55 - Syncope and collapse (2) Atrial fibrillation: Plan: review of SNF med record reveals that he is on metoprolol for a fib. He is also on amiodarone. he is in SR here. will monitor on tele. review of further old ED visits shows that was previously on Eliquis, presumably dc'ed due to syncopal episodes and fall risk. IT appears that he has had syncopal episodes for quite some time, reviewing records, as far back as 2019 where an ED visit looks quite suspicious for a sycopal fall leading to ulnar shaft fracture. I will place the patient on telemetry and resume his metoprolol. (3) Hypokalemia: Plan: 3.1 on admit. oral KCL, 40mEq ordered. check BMP in the AM. Plan admit for syncope. PAtient with syncopal episode in the ED when he got up. Will need further treatment and evaluation before can be safely returned to previous living environment. I have spent 78 minutes in the care of this patient today. This includes time [id number], review and ordering of diagnostic imaging and laboratory studies and consultation with other providers. Monitoring the patient's signs symptoms, evaluation of medication effectiveness and patient's response to treatment. Lab Results Lab results reviewed: Yes 01/02/25 16:30 01/02/25 16:30 Core Measures Anticipated LOS I expect patient to be DC'd or transferred within 96 hours.: Yes DVT/VTE - Prophylaxis VTE/DVT Device ordered at admit?: Yes VTE/DVT Prophylaxis med ordered at admit?: Yes
[2025-01-02] MEDS ORDERED: ACETAMINOPHEN 325 MG TABLET PO PRN (20:24)
[2025-01-02] MEDS ORDERED: SODIUM CHLORIDE FLUSH 0.9% 10 ML SYRINGE IVP PRN (20:24)
[2025-01-02] MEDS ORDERED: ONDANSETRON 4 MG/2 ML VIAL IVP PRN (20:24)
[2025-01-02] MEDS: LACTATED RINGERS 1,000 ML IV SCH (21:11)
[2025-01-02] MEDS: HEPARIN 5,000 UNIT/ML VIAL SUBQ SCH (21:16)
[2025-01-02] MEDS: POTASSIUM CHLORIDE 20 MEQ TABLET PO ONE (21:46)
[2025-01-02] MEDS: SODIUM CHLORIDE FLUSH 0.9% 10 ML SYRINGE IVP SCH (23:36)
[2025-01-03 05:53] LABS: BASOPHILS % (AUTO) 0.4 %; EOSINOPHILS # (AUTO) 0.1 10^3/uL (0.0-0.7); EOSINOPHILS % (AUTO) 1.3 %; HCT - HEMATOCRIT 28.7 % (42.0-52.0); HGB - HEMOGLOBIN 10.3 g/dL (14.0-18.0); LYMPHOCYTES # (AUTO) 1.4 10^3/uL (1.5-3.5); LYMPHOCYTES % (AUTO) 26.5 %; MEAN CORPUSCULAR HEMOGLOBIN 31.7 pg (27.0-31.0); MEAN CORPUSCULAR HGB CONC 35.9 g/dL (32.0-36.0); MEAN CORPUSCULAR VOLUME 88.3 fL (80.0-94.0); MONOCYTES # (AUTO) 0.7 10^3/uL (0.0-1.0); MONOCYTES % (AUTO) 13.4 %; PLT - PLATELET COUNT 115 10^3/uL (130-450); RED BLOOD COUNT 3.25 10^6/uL (4.70-6.10); RED CELL DISTRIBUTION WIDTH 12.8 % (12.0-15.0); WHITE BLOOD COUNT 5.2 x10^3/uL (4.8-10.8)
[2025-01-03 06:10] LABS: CALCIUM 8.2 mg/dL (8.5-10.3); MAGNESIUM 1.7 mg/dL (1.7-2.3); POTASSIUM 2.8 mmol/L (3.5-4.5)
[2025-01-03] MEDS: AMIODARONE 200 MG TABLET PO SCH (08:29)
[2025-01-03] MEDS: METOPROLOL SUCCINATE 25 MG TABLET PO SCH (08:29)
[2025-01-03] MEDS: POTASSIUM CHLORIDE 20 MEQ TABLET PO ONE (08:41)
[2025-01-03] MEDS: POTASSIUM CHLOR 10 MEQ/100 ML 10 MEQ/100 ML BAG IV SCH (08:43)
--- NOTE | 2025-01-03 13:47 | PT Plan of Care ---
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 Pt recently moved to [facility] for SNF stay, prior to this living in tri-level home with his . Pt has dementia and is A&Ox1 at baseline. Has been ambulatory and pt states he does not use AD. Upon PT eval, pt is A&Ox1, pleasant and easily directable. Follows all cueing and amb to/from bathroom approx 15' with cues for walker mgmt and pathfinding. Gait with poor BL toe clearance and notable thoracic and lumbar flexion. Pt is a high fall risk given recent fall, Afib and dementia dx, general deconditioning and [place]. Pt will benefit from skilled PT in acute setting given above impairments. When medically clear, PT rec dc back to SNF for continued rehab. Goals Improve bed mobility to: Modified Independent Improve supine to sit to: Modified Independent Improve sit to stand to: Contact Guard Improve pivot transfer ability Contact Guard to: Improve sit to supine to: Contact Guard Improve gait ability to: Min A Assistive Device Used: Front Wheeled Walker PT Plan of Care Frequency 1-2x/day Duration Until goals are met Discharge Recommendations Discharge Location Custodial Facility DC Equipment Recommended Front wheeled walker Transport Needs at Discharge Wheelchair van
--- NOTE | 2025-01-03 13:57 | PROVIDER PROGRESS NOTE ---
Subjective Prog Note Date Prog Note Date: 01/03/25 Subjective Subjective: worked with PT this AM and did well. No further episodes of syncope. I spoke with regarding the exact circumstances of yesterday's syncopal episode. She states that he has had these before and was admitted to [facility] prior to his admission to [facility] for exactly this. Yesterday what happened is he transferred to the bedside commode and had been sitting on it for very short period of time. He was not straining although his complaint was that he needed to have a bowel movement. He then had this syncopal episode. This is not the first time this has happened. He has previously been worked up for cardiac arrhythmia and had an implanted loop recorder for about a year. Nothing was detected. Has also been worked up previously for heart failure and does not have heart failure. states several times that he does not have cardiac arrhythmia and that he does not have A-fib. However, he is on amiodarone and metoprolol. He is otherwise doing well without complaints but is oriented to himself only. Current Medications Current Medications Current Medications: Current Medications Generic Name Dose Route Start Last Admin Trade Name Freq PRN Reason Stop Dose Admin Acetaminophen 650 mg 01/02/25 20:24 Acetaminophen 325 Mg Tablet PO Q4HR PRN Pain 1 to 4, or Fever Amiodarone HCl 200 mg 01/03/25 09:00 01/03/25 08:29 Amiodarone 200 Mg Tablet PO 200 mg DAILY BAY Administration Heparin Sodium (Porcine) 5,000 unit 01/02/25 21:00 01/03/25 08:29 Heparin 5,000 Unit/Ml Vial SUBQ 5,000 unit BID BAY Administration Lactated Ringer's 1,000 mls @ 100 mls/hr 01/02/25 20:24 01/03/25 06:22 Lr IV 01/03/25 16:23 100 mls/hr .Q10H BAY Administration Metoprolol Succinate 25 mg 01/03/25 09:00 01/03/25 08:29 Metoprolol Succinate 25 Mg Tablet PO 25 mg DAILY BAY Administration Multivitamins/Minerals 1 tab 01/03/25 17:00 Multivitamin W/Minerals Tablet PO DAILYWM BAY Ondansetron HCl 4 mg 01/02/25 20:24 Ondansetron 4 Mg/2 Ml Vial IVP Q6HR PRN Nausea / Vomiting Sodium Chloride 10 ml 01/02/25 20:24 Sodium Chloride Flush 0.9% 10 Ml Syringe IVP PRN PRN NEEDED PER PROVIDER ORDERS Sodium Chloride 10 ml 01/03/25 01:00 01/03/25 08:30 Sodium Chloride Flush 0.9% 10 Ml Syringe IVP 10 ml 0100,0900,1700 BAY Administration Objective Vital Signs/Intake & Output Reviewed Vital Signs: Yes Vital Signs: Vital Signs x48h Temp Pulse Resp BP Pulse Ox 01/03/25 12:08 36.6 C 65 18 130/70 97 01/03/25 08:05 36.4 C L 64 20 151/70 H 96 01/03/25 06:01 36.6 C 66 20 144/69 H 93 Intake & Output: Intake & Output 12/31/24 01/01/25 01/02/25 01/03/25 23:59 23:59 23:59 23:59 Intake Total 740 / 740 2645 / 2645 Output Total 500 / 500 1050 / 1050 Balance 240 / 240 1595 / 1595 Weight (kg) 749.5 kg 89 kg Objective General Appearance: positive No acute distress and Alert Eyes Bilateral: positive Normal inspection and PERRL ENT: positive ENT inspection nml Neck: positive Nml inspection Respiratory: positive Chest non-tender and Breath sounds nml Cardiovascular: positive Regular rate & rhythm Abdomen: positive Non-tender Back: positive Nml inspection Skin: positive Color nml Extremities: positive Non-tender and No pedal edema (trace) Neurologic/Psychiatric: positive Oriented x3 Comments/Other: Selected Entries 01/03/25 09:00 Supine Blood Pressure 120/58 L Supine Heart Rate 69 Sitting Blood Pressure 130/66 Sitting Heart Rate 76 Standing Blood Pressure 130/62 Standing Heart Rate 80 Lab Results 01/03/25 05:29 01/03/25 05:29 Other Labs: Lab Results x24hrs 01/03/25 01/02/25 Range/Units 05:29 16:30 WBC 5.2 6.1 (4.8-10.8) x10^3/uL RBC 3.25 L 3.75 L (4.70-6.10) 10^6/uL Hgb 10.3 L 12.0 L (14.0-18.0) g/dL Hct 28.7 L 33.4 L (42.0-52.0) % MCV 88.3 89.1 (80.0-94.0) fL MCH 31.7 H 32.0 H (27.0-31.0) pg MCHC 35.9 35.9 (32.0-36.0) g/dL RDW 12.8 12.9 (12.0-15.0) % Plt Count 115 L 132 (130-450) 10^3/uL MPV 11.0 10.5 (7.4-11.4) fL Neut # (Auto) 3.0 4.3 (1.5-6.6) 10^3/uL Lymph # (Auto) 1.4 L 1.0 L (1.5-3.5) 10^3/uL [place] # (Auto) 0.7 0.8 (0.0-1.0) 10^3/uL Eos # (Auto) 0.1 0.0 (0.0-0.7) 10^3/uL Baso # (Auto) 0.0 0.0 (0.0-0.1) 10^3/uL Absolute Nucleated RBC 0.00 0.00 x10^3/uL Nucleated RBC % 0.0 0.0 /100WBC Sodium 134 L 132 L (135-145) mmol/L Potassium 2.8 L 3.1 L (3.5-4.5) mmol/L Chloride 102 99 L (101-111) mmol/L Carbon Dioxide 27 27 (21-32) mmol/L Anion Gap 5.0 L 6.0 (6-13) BUN 18 21 H (6-20) mg/dL Creatinine 1.0 1.2 (0.6-1.3) mg/dL Estimated GFR (MDRD) 70 L 57 L (>89) Glucose 97 104 (74-104) mg/dL Calcium 8.2 L 8.8 (8.5-10.3) mg/dL Magnesium 1.7 (1.7-2.3) mg/dL Total Bilirubin 0.5 (0.2-1.0) mg/dL AST 21 (10-42) IU/L ALT 16 (10-60) IU/L Alkaline Phosphatase 51 (42-121) IU/L Troponin I High Sens 13.3 (2.3-19.7) ng/L Total Protein 6.2 L (6.4-8.9) g/dL Albumin 3.7 (3.2-5.5) g/dL Globulin 2.5 (2.1-4.2) g/dL Albumin/Globulin Ratio 1.5 (1.0-2.2) Lipase 60 (11-82) U/L Assessment/Plan Problem List (1) Syncope: Impression: His syncope has been worked up multiple times. Most recently admitted to [facility] several weeks ago for a syncopal workup. Telemetry shows sinus rhythm without any pauses and some very mild bradycardia with occasional heart rates in the high 50s. Echocardiogram is done but not read. EKG in the emergency department last night does show sinus rhythm. He will remain on telemetry for the length of his admission. He has a history of implanted loop recorder which was maintained for 1 year and he showed no signs of arrhythmia during that time. His ultimate goal is to return home with his . They live in a trilevel home but his is actively engaged with a real estate assessor to sell the home and have them move into something that is a single level [place]. [place] have good support [place] with the daughter that lives locally. Qualifiers: Syncope type: unspecified Qualified Code(s): R55 - Syncope and collapse (2) Atrial fibrillation: Impression: denies atrial fibrillation. Patient denies atrial fibrillation. Monitoring does not show atrial fibrillation the telemetry strips that I have shows sinus rhythm. Patient however is on amiodarone and metoprolol. All EKGs in our system back as far as 2016 were reviewed. I see sinus rhythm on all of these tracings. (3) Hypokalemia: Impression: Hypokalemia slightly worsening with IV fluid administration overnight. He was 3.1 on admission 2.8 this morning. He has been given 40 mill equivalents of oral potassium last night and 40 mill equivalents this morning. Additionally he is getting 20 mill equivalents IV. There is a negligible amount of potassium in his IV fluids. I have ordered repeat BMP for the a.m. (4) Hyponatremia: Impression: Mild hyponatremia on admission. This morning repeat BMP shows some improvement to 134. I will recheck BMP in the a.m. Patient is eating a regular diet sodium will likely continue to improve. He tends to run slightly below normal at baseline. I have spent 38 minutes in the care of this patient today. This includes time [id number], review and ordering of diagnostic imaging and laboratory studies.
--- NOTE | 2025-01-03 14:11 | OT Plan of Care ---
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 Pt recently moved to [facility] for SNF stay, prior to this living in tri-level home with his . Pt has dementia and is A&Ox1 at baseline. Has been ambulatory and pt states he does not use AD. Seen for OT evaluation. Performed sit to stand and ambulation to/from bathroom using RW MIN A MIN A toilet tx, MAX a hygiene and brief management. Overall presents with decreased endurance, activity tolerance and ADL status. Will benefit from cont OT services during acute stay. Rec d/c to SNF at this time. Goals - Activities of Daily Living Improve Upper Extremity Standby Assist Dressing to: Improve Lower Extremity Standby Assist Dressing to: Improve Grooming/Hygiene to: Standby Assist Improve Bathing to: Standby Assist Improve Toileting to: Standby Assist Plan Treatment Frequency 1x/day Duration Until discharge -Discharge Recommendations Discharge Location Group Home Facility Transport Needs at Discharge Wheelchair van
--- NOTE | 2025-01-03 14:41 | PHARMACY PROGRESS NOTE ---
Best Possible Medication History Admit Date and Time: 01/03/25 1115 Home Medications Medication Instructions Recorded Confirmed Type amlodipine 5 mg tablet 1 tab PO DAILY 05/11/16 01/03/25 History finasteride 5 mg tablet 1 tab PO DAILY 05/11/16 01/03/25 History acetaminophen 325 mg tablet 650 mg PO Q4H PRN fever or pain 01/03/25 01/03/25 History alfuzosin 10 mg tablet,extended 10 mg PO DAILY 01/03/25 01/03/25 History release 24 hr amiodarone 200 mg tablet 200 mg PO DAILY 01/03/25 01/03/25 History ascorbic acid (vitamin C) 500 mg 1 g PO DAILY 01/03/25 01/03/25 History chewable tablet (Acerola C) atorvastatin 20 mg tablet (Lipitor) 20 mg PO QPM 01/03/25 01/03/25 History bisacodyl 10 mg rectal suppository 10 mg CO DAILY PRN constipation 01/03/25 01/03/25 History (Dulcolax (bisacodyl)) cholecalciferol (vitamin D3) 25 50 mcg PO DAILY 01/03/25 01/03/25 History mcg (1,000 unit) tablet ferrous sulfate 325 mg (65 mg 325 mg PO DAILY 01/03/25 01/03/25 History iron) tablet (FeroSul) linaclotide 145 mcg capsule 145 mcg PO DAILY 01/03/25 01/03/25 History (Linzess) loratadine 10 mg tablet 10 mg PO DAILY 01/03/25 01/03/25 History metoprolol succinate 25 mg 25 mg PO DAILY 01/03/25 01/03/25 History tablet,extended release 24 hr mineral oil (Fleet Mineral Oil 118 ml CO DAILY PRN constipation 01/03/25 01/03/25 History enema) multivitamin 1 tab PO DAILY 01/03/25 01/03/25 History omeprazole 20 mg capsule,delayed 20 mg PO DAILY 01/03/25 01/03/25 History release polyethylene glycol 3350 17 17 g PO DAILY PRN constipation 01/03/25 01/03/25 History gram/dose oral powder (ClearLax) sennosides 8.6 mg tablet (Natural 17.2 mg PO DAILY PRN constipation 01/03/25 01/03/25 History Senna Laxative) sodium chloride 1 gram tablet 1,000 mg PO TID 01/03/25 01/03/25 History Processed by: Pharmacy Medications reviewed in ED?: No Medication History completed: Yes Patient Interview: Pt unable to participate Secondary Source(s): Facility MAR as ONLY source (Medication list from [facility]) [facility] Statement: As the person ultimately responsible for medication therapy, providers are able to order a medication from an existing home medication list in [facility] via the "Reconcile Routine" prior to Confirmation of that medication by business support specialist. Such practice is discouraged except when the physician, in their clinical judgment, deems that a medical need exists for a medication without regard to previous use.
--- NOTE | 2025-01-03 16:29 | ECHO Report ---
Version: 1 Study ID: [id number] [address] [place] [address] Adult Echocardiogram Report Name: RAÚL HUDSON Study Date: 01/03/2025, 8: 57 AM BP : 151 / 70 mmHg [place] [facility] [place] HR: 70 bpm : 1935 (MM/DD/YYYY) Gender: Male He ight: 72 in Age: 89 Years Weight: 196.211 lb Reason For Study: syncope History: Syncope h/o atrial fibrillation Procedure: A complete two-dimensional transthoracic echocardiogram was performed (2D, M-mode, Doppler and color flow Doppler). This study was focused secondary to limited cardiac windows. This was a very technically difficult study w ith limited views of the chambers and valves due to body habitus, lung interference and patient position. The underlyin g rhythm was sinus. Interpretation Summary 1. Normal left ventricular size and function, EF 60%. The left atirum is not well seen. 2. Calcified aortic vavle without stenosis. 3. Normal right ventricular size and function. Normal pulmonary pressure. Left Ventricle: The left ventricle is normal in size. Global left ventricular systolic function is normal. The visual left ventricular ejection fraction is estimated at 60 to 65%. No regional wall motion abnormalities are present. The o verall diastolic pattern is most consistent with impaired left ventricular relaxation with low to normal filling press ures. Right Ventricle: The right ventricle is normal in size and function. Aortic Valve: The aortic valve is not well visualized. Aortic stenosis cannot be excluded. No hemodynamically signi ficant valvular aortic stenosis. No aortic regurgitation is present. Mitral Valve: The mitral valve leaflets are mildly calcified. The mitral annular calcification is both posterior an d anterior. Moderate mitral annular calcification is present. No evidence of mitral stenosis is seen. There is tr katelyn mitral regurgitation. Tricuspid Valve: The tricuspid valve is normal in structure and function. Trace tricuspid regurgitation present. Pulmonic Valve: The pulmonic valve is normal in structure and function. Trace pulmonic valvular regurgitation is pres ent. Left Atrium: The left atrium is not well visualized. Right Atrium: Right atrial size is normal. The inferior vena cava is not well visualized. The central venous pressu re cannot be estimated on this study. Atrial Septum: The interatrial septum is not well seen. Interatrial shunt cannot be excluded. Aorta: The ascending aorta is not well seen. The aortic root is not well visualized. Pulmonary Artery: Unable to evaluate RA pressure from IVC dynamics; however the pulmonary artery systolic pressure is l ikely 23 mmHg plus central venous pressure. Pericardium/Pleural Space: There is no pericardial effusion. Doppler Measurements & Calculations Inf E' Vel_phl: 5.4 cm/sec MV A max jacky: 108.8 cm/sec MV dec time: 0.30 sec MV E max jacky: 99.7 cm/sec PA max P.5 mmHg PA V2 max: 79.5 cm/sec Post E' Jacky: 8.3 cm/sec TR max P.7 mmHg TR max jacky: 238.2 cm/sec MMode/2D Measurements & Calculations EDV(MOD-sp4): 60.6 ml EDV(sp4-el): 59.9 ml ESV(MOD-sp4): 22.0 ml ESV(sp4-el): 21.4 ml Heart Rate: 70.0 BPM Height (metric): 182.9 cm LVAd ap4: 23.0 cm² LVAs ap4: 11.9 cm² LVLd ap4: 7.5 cm LVLs ap4: 5.6 cm Systolic Pressure: 151.0 mmHg Other Measurements & Calculations BMI: 26.6 kilograms/m² BSA: 2.11 m² BSA([facility]): 2.14 m² Diastolic Pressure: 70.0 mmHg EDV(MOD-sp4): 60.6 ml EDV(sp4-el): 59.9 ml EF(MOD-sp4): 63.7 % EF(sp4-el): 64.3 % ESV(MOD-sp4): 22.0 ml ESV(sp4-el): 21.4 ml Heart Rate: 70.0 BPM Height (metric): 182.9 cm Inf E' Vel_phl: 5.4 cm/sec LVAd ap4: 23.0 cm² LVAs ap4: 11.9 cm² LVLd ap4: 7.5 cm LVLs ap4: 5.6 cm MV A max jacky: 108.8 cm/sec MV dec time: 0.30 sec MV E max jacky: 99.7 cm/sec MV E/A: 0.92 PA max P.5 mmHg PA V2 max: 79.5 cm/sec Post E' Jacky: 8.3 cm/sec SV(MOD-sp4): 38.6 ml SV(sp4-el): 38.5 ml Systolic Pressure: 151.0 mmHg TR max P.7 mmHg TR max jacky: 238.2 cm/sec TV max P.7 mmHg Weight (metric): 89.0 kg EDV(MOD-sp2): 39.8 ml EDV(sp2-el): 40.8 ml ESV(MOD-sp2): 15.8 ml ESV(sp2-el): 15.1 ml LVAd ap2: 17.4 cm² LVAs ap2: 9.9 cm² LVLd ap2: 6.3 cm LVLs ap2: 5.5 cm EDV(MOD-bp): 52.2 ml EF(MOD-bp): 63.7 % EF(MOD-sp2): 60.2 % EF(sp2-el): 63.0 % ESV(MOD-bp): 19.0 ml Venu Erickson MD 01/03/2025, 4: 28 PM Ordering Physician: Porsha Ruiz Referring Physician: Hany Mobley Performed By: Lisbeth Shipman RDCS
[2025-01-03] MEDS: MULTIVITAMIN W/MINERALS TABLET PO SCH (17:13)
[2025-01-04 05:31] LABS: BASOPHILS % (AUTO) 0.5 %; EOSINOPHILS # (AUTO) 0.2 10^3/uL (0.0-0.7); EOSINOPHILS % (AUTO) 3.5 %; HCT - HEMATOCRIT 30.3 % (42.0-52.0); HGB - HEMOGLOBIN 10.8 g/dL (14.0-18.0); LYMPHOCYTES # (AUTO) 1.6 10^3/uL (1.5-3.5); LYMPHOCYTES % (AUTO) 27.3 %; MEAN CORPUSCULAR HEMOGLOBIN 31.9 pg (27.0-31.0); MEAN CORPUSCULAR HGB CONC 35.6 g/dL (32.0-36.0); MEAN CORPUSCULAR VOLUME 89.4 fL (80.0-94.0); MEAN PLATELET VOLUME 10.9 fL (7.4-11.4); MONOCYTES # (AUTO) 0.6 10^3/uL (0.0-1.0); MONOCYTES % (AUTO) 11.1 %; NEUTROPHILS # (AUTO) 3.2 10^3/uL (1.5-6.6); NEUTROPHILS % (AUTO) 57.1 %; PLT - PLATELET COUNT 115 10^3/uL (130-450); RED BLOOD COUNT 3.39 10^6/uL (4.70-6.10); RED CELL DISTRIBUTION WIDTH 12.8 % (12.0-15.0); WHITE BLOOD COUNT 5.7 x10^3/uL (4.8-10.8)
[2025-01-04 08:06] LABS: CALCIUM 8.3 mg/dL (8.5-10.3); CREATININE 0.9 mg/dL (0.6-1.3); POTASSIUM 3.2 mmol/L (3.5-4.5)
[2025-01-04] MEDS: SODIUM CHLORIDE 1 GM TABLET PO SCH (11:25)
[2025-01-04] MEDS: POTASSIUM CHLOR 10 MEQ/100 ML 10 MEQ/100 ML BAG IV SCH (11:25)
[2025-01-04] MEDS: POTASSIUM CHLORIDE 20 MEQ TABLET PO ONE (12:22)
--- NOTE | 2025-01-04 14:40 | PROVIDER PROGRESS NOTE ---
Subjective Prog Note Date Prog Note Date: 01/04/25 Subjective Subjective: confused today. Thinks he is in [place]. I reassured him that he made it back to [place], and he was relieved, but he says he needs $ to get home. Then later today, he forgets his 's name (they have been together for 55 years). Current Medications Current Medications Current Medications: Current Medications Generic Name Dose Route Start Last Admin Trade Name Freq PRN Reason Stop Dose Admin Acetaminophen 650 mg 01/02/25 20:24 Acetaminophen 325 Mg Tablet PO Q4HR PRN Pain 1 to 4, or Fever Amiodarone HCl 200 mg 01/03/25 09:00 01/04/25 08:23 Amiodarone 200 Mg Tablet PO 200 mg DAILY BAY Administration Heparin Sodium (Porcine) 5,000 unit 01/02/25 21:00 01/04/25 08:23 Heparin 5,000 Unit/Ml Vial SUBQ 5,000 unit BID BAY Administration Metoprolol Succinate 25 mg 01/03/25 09:00 01/04/25 08:23 Metoprolol Succinate 25 Mg Tablet PO 25 mg DAILY BAY Administration Multivitamins/Minerals 1 tab 01/03/25 17:00 01/04/25 08:23 Multivitamin W/Minerals Tablet PO 1 tab DAILYWM BAY Administration Ondansetron HCl 4 mg 01/02/25 20:24 Ondansetron 4 Mg/2 Ml Vial IVP Q6HR PRN Nausea / Vomiting Sodium Chloride 10 ml 01/02/25 20:24 Sodium Chloride Flush 0.9% 10 Ml Syringe IVP PRN PRN NEEDED PER PROVIDER ORDERS Sodium Chloride 10 ml 01/03/25 01:00 01/04/25 08:23 Sodium Chloride Flush 0.9% 10 Ml Syringe IVP 10 ml 0100,0900,1700 BAY Administration Sodium Chloride 1 gm 01/04/25 11:00 01/04/25 11:25 Sodium Chloride 1 Gm Tablet PO 1 gm BID BAY Administration Objective Vital Signs/Intake & Output Reviewed Vital Signs: Yes Vital Signs: Vital Signs x48h Temp Pulse Resp BP Pulse Ox 01/04/25 13:00 36.8 C 70 24 148/74 H 99 01/04/25 07:54 36.7 C 69 18 155/79 H 96 Intake & Output: Intake & Output 01/01/25 01/02/25 01/03/25 01/04/25 23:59 23:59 23:59 23:59 Intake Total 740 / 740 4235 / 4235 737 / 737 Output Total 500 / 500 1650 / 1650 2500 / 2500 Balance 240 / 240 2585 / 2585 -1763 / -1763 Weight (kg) 749.5 kg 89 kg 80.5 kg Objective General Appearance: positive No acute distress and Alert Eyes Bilateral: positive Normal inspection and PERRL ENT: positive ENT inspection nml Neck: positive Nml inspection Respiratory: positive Chest non-tender and Breath sounds nml Cardiovascular: positive Regular rate & rhythm Abdomen: positive Non-tender Back: positive Nml inspection Skin: positive Color nml Extremities: positive Non-tender and No pedal edema (trace) Neurologic/Psychiatric: positive Oriented x3 Comments/Other: Selected Entries 01/03/25 09:00 Supine Blood Pressure 120/58 L Supine Heart Rate 69 Sitting Blood Pressure 130/66 Sitting Heart Rate 76 Standing Blood Pressure 130/62 Standing Heart Rate 80 Lab Results 01/04/25 05:11 01/04/25 14:33 Other Labs: Lab Results x24hrs 01/04/25 Range/Units 05:11 WBC 5.7 (4.8-10.8) x10^3/uL RBC 3.39 L (4.70-6.10) 10^6/uL Hgb 10.8 L (14.0-18.0) g/dL Hct 30.3 L (42.0-52.0) % MCV 89.4 (80.0-94.0) fL MCH 31.9 H (27.0-31.0) pg MCHC 35.6 (32.0-36.0) g/dL RDW 12.8 (12.0-15.0) % Plt Count 115 L (130-450) 10^3/uL MPV 10.9 (7.4-11.4) fL Neut # (Auto) 3.2 (1.5-6.6) 10^3/uL Lymph # (Auto) 1.6 (1.5-3.5) 10^3/uL [place] # (Auto) 0.6 (0.0-1.0) 10^3/uL Eos # (Auto) 0.2 (0.0-0.7) 10^3/uL Baso # (Auto) 0.0 (0.0-0.1) 10^3/uL Absolute Nucleated RBC 0.00 x10^3/uL Nucleated RBC % 0.0 /100WBC Sodium 130 L (135-145) mmol/L Potassium 3.2 L (3.5-4.5) mmol/L Chloride 99 L (101-111) mmol/L Carbon Dioxide 26 (21-32) mmol/L Anion Gap 5.0 L (6-13) BUN 15 (6-20) mg/dL Creatinine 0.9 (0.6-1.3) mg/dL Estimated GFR (MDRD) 79 L (>89) Glucose 95 (74-104) mg/dL Calcium 8.3 L (8.5-10.3) mg/dL Magnesium 1.6 L (1.7-2.3) mg/dL Assessment/Plan Problem List (1) Syncope: Impression: His syncope has been worked up multiple times. Most recently admitted to [facility] several weeks ago for a syncopal workup. Telemetry shows sinus rhythm without any pauses and some very mild bradycardia with occasional heart rates in the high 50s ( but no mild bradycardia in last 24h). Echocardiogram LVEF 60%. normal right heart, normal pulm pressure EKG in the emergency department shows sinus rhythm. He will remain on telemetry for the length of his admission. He has a history of implanted loop recorder which was maintained for 1 year and he showed no signs of arrhythmia during that time. His ultimate goal is to return home with his . They live in a [place] home but his is actively engaged with a real estate paralegal to sell the home and have them move into something that is a [place] good [place] with the daughter that lives locally. Can transfer back to [facility] when arrangements can be made. Qualifiers: Syncope type: unspecified Qualified Code(s): R55 - Syncope and collapse (2) Atrial fibrillation: Impression: denies atrial fibrillation. Patient denies atrial fibrillation. Monitoring does not show atrial fibrillation the telemetry strips that I have shows sinus rhythm. Patient however is on amiodarone and metoprolol. All EKGs in our system back as far as 2016 were reviewed. I see sinus rhythm on all of these tracings. (3) Hypokalemia: Impression: Hypokalemia slightly worsening with IV fluid administration overnight. He was 3.1 on admission. I have been repleting his K daily. K 3.2 this AM, he received more KCl. 40mEq PO. he pulled his IV after getting 10mEq. repeat BMP this afternoon. I have ordered repeat BMP for the a.m. (4) Hyponatremia: Impression: Mild hyponatremia on admission. sodium has been labile. 130 this AM. I am repeating BMP this afternoon, he is on salt tabs, 1g BID. I have spent 28 minutes in the care of this patient today. This includes time [id number], review and ordering of diagnostic imaging and laboratory studies.
[2025-01-04 14:51] LABS: CALCIUM 8.6 mg/dL (8.5-10.3); CREATININE 0.9 mg/dL (0.6-1.3); POTASSIUM 3.4 mmol/L (3.5-4.5)
[2025-01-05 05:59] LABS: BASOPHILS % (AUTO) 0.4 %; EOSINOPHILS # (AUTO) 0.2 10^3/uL (0.0-0.7); EOSINOPHILS % (AUTO) 3.3 %; HCT - HEMATOCRIT 31.1 % (42.0-52.0); HGB - HEMOGLOBIN 11.2 g/dL (14.0-18.0); LYMPHOCYTES # (AUTO) 1.2 10^3/uL (1.5-3.5); LYMPHOCYTES % (AUTO) 26.9 %; MEAN CORPUSCULAR HEMOGLOBIN 31.5 pg (27.0-31.0); MEAN CORPUSCULAR VOLUME 87.6 fL (80.0-94.0); MEAN PLATELET VOLUME 10.5 fL (7.4-11.4); MONOCYTES # (AUTO) 0.6 10^3/uL (0.0-1.0); MONOCYTES % (AUTO) 13.2 %; NEUTROPHILS # (AUTO) 2.6 10^3/uL (1.5-6.6); NEUTROPHILS % (AUTO) 55.8 %; PLT - PLATELET COUNT 119 10^3/uL (130-450); RED BLOOD COUNT 3.55 10^6/uL (4.70-6.10); RED CELL DISTRIBUTION WIDTH 12.7 % (12.0-15.0); WHITE BLOOD COUNT 4.6 x10^3/uL (4.8-10.8)
[2025-01-05 06:15] LABS: CALCIUM 8.5 mg/dL (8.5-10.3); POTASSIUM 3.1 mmol/L (3.5-4.5)
[2025-01-05 08:12] VITALS: BP 140/72; TEMP 97.7; O2SAT 96
--- NOTE | 2025-01-05 11:32 | Discharge Summary ---
"Discharge Summary Admit Date: 01/02/25 Discharge Date: 01/05/25 Discharging Provider: Porsha Ruiz PA-C Primary Care Provider: Carmen Sanabria MD Code Status: Do Not Attempt Resuscitation DIAGNOSES Discharge Diagnoses with Status of Each Condition: Syncope: No syncopal episodes after leaving the emergency department. Cause of syncope remains undiagnosed Atrial fibrillation has been in sinus rhythm for the entirety of his admission Hypokalemia: In need of daily repletion. Recommend repeat BMP in 3 days Hyponatremia: On salt tabs. Recommend NaCl 1 g 3 times daily with recheck BMP in 3 days HPI History of Present Illness: 89-year-old male who presents to the emergency department with a syncopal episode. Recently admitted to [facility] on 12/21/2024. Exact reason for admission is unknown as there is no reliable historian at the bedside. In any event apparently has a history of orthostatic hypotension and recurrent syncope. However got up this afternoon had a bowel movement and as he was moving back over to bed had a syncopal event. Reportedly was hypotensive on scene. Therefore was transferred to the emergency department. Reportedly while in the emergency department had another syncopal episode when attempt was made to stand him upright. Did have orthostatic vital signs taken and these were not positive. EKG is unrevealing as has been telemetry since he has been in the emergency department. Patient is reportedly at his baseline mental status has not shown any other neurologic abnormalities. He is a very poor historian. He is oriented to self only. He does come to us with copy of a POLST which shows DNR selective treatment. His signed the POLST. CONSULTS | PROCEDURES Procedures: Head CT: Mild residual intraparenchymal hemorrhage significantly improved compared to prior other subarachnoid hemorrhage has resolved. No new intracranial hemorrhage Chest x-ray: No acute cardiopulmonary process HOSPITAL COURSE Hospital Course: (1) Syncope: Impression: His syncope has been worked up multiple times. Most recently admitted to [facility] several weeks ago for a syncopal workup. Telemetry shows sinus rhythm without any pauses and some very mild bradycardia with occasional heart rates in the high 50s ( but no mild bradycardia in last 48h). Echocardiogram LVEF 60%. normal right heart, normal pulm pressure EKG in the emergency department shows sinus rhythm. He was on telemetry for the length of his admission. He has a history of implanted loop recorder which was maintained for 1 year and he showed no signs of arrhythmia during that time. His ultimate goal is to return home with his . They live in a trilevel home but his is actively engaged with a real estate internship to sell the home [place]. Selected Entries 01/04/25 09:00 01/05/25 09:48 Supine Blood Pressure 167/80 H 143/64 H Supine Heart Rate 79 75 Sitting Blood Pressure 157/78 H 143/75 H Sitting Heart Rate 74 77 Standing Blood Pressure 135/69 H 114/61 Standing Heart Rate 82 85 He had a 30 point drop in SBP on orthostatics 01/05 but was completely asymptomatic. BPs monitored while here, I stopped his amlodipine 5mg daily. (2) Atrial fibrillation: Impression: denies atrial fibrillation. Patient denies atrial fibrillation. Monitoring does not show atrial fibrillation the telemetry strips that I have shows sinus rhythm. Patient however is on amiodarone and metoprolol. All EKGs in our system back as far as 2016 were reviewed. I see sinus rhythm on all of these tracings.He has not shown any atrial fibrillation while he has been here. He may have converted. He is not on anticoagulation nor should he be with a history of intracranial bleeding and a high fall risk. (3) Hypokalemia: He was 3.1 on admission. I have been repleting his K daily. K 3.1 this AM, He has been as low as 2.8 this admit. recommend daily supplementation with KCl 60mEq. BMP in 3d (4) Hyponatremia: Laboratory Tests 01/02/25 01/03/25 01/04/25 16:30 05:29 05:11 Sodium 132 L 134 L 130 L 01/04/25 01/05/25 14:33 05:42 Sodium 130 L 128 L Mild hyponatremia on admission. sodium has been labile. BMP in 3d recommed NaCL 1gm TID . ALLERGIES Allergies Allergy/AdvReac Type Severity Reaction Status Date / Time No Known Drug Allergies Allergy Verified 01/02/25 15:34 MEDICATIONS Ambulatory Orders Medication Instructions Recorded Confirmed finasteride 5 mg tablet 1 tab PO DAILY 05/11/16 01/03/25 acetaminophen 325 mg tablet 650 mg PO Q4H PRN fever or pain 01/03/25 01/03/25 alfuzosin 10 mg tablet,extended 10 mg PO DAILY 01/03/25 01/03/25 release 24 hr amiodarone 200 mg tablet 200 mg PO DAILY 01/03/25 01/03/25 ascorbic acid (vitamin C) 500 mg 1 g PO DAILY 01/03/25 01/03/25 chewable tablet (Acerola C) atorvastatin 20 mg tablet (Lipitor) 20 mg PO QPM 01/03/25 01/03/25 bisacodyl 10 mg rectal suppository 10 mg OK DAILY PRN constipation 01/03/25 01/03/25 (Dulcolax (bisacodyl)) cholecalciferol (vitamin D3) 25 50 mcg PO DAILY 01/03/25 01/03/25 mcg (1,000 unit) tablet ferrous sulfate 325 mg (65 mg 325 mg PO DAILY 01/03/25 01/03/25 iron) tablet (FeroSul) linaclotide 145 mcg capsule 145 mcg PO DAILY 01/03/25 01/03/25 (Linzess) loratadine 10 mg tablet 10 mg PO DAILY 01/03/25 01/03/25 metoprolol succinate 25 mg 25 mg PO DAILY 01/03/25 01/03/25 tablet,extended release 24 hr mineral oil (Fleet Mineral Oil 118 ml OK DAILY PRN constipation 01/03/25 01/03/25 enema) multivitamin 1 tab PO DAILY 01/03/25 01/03/25 omeprazole 20 mg capsule,delayed 20 mg PO DAILY 01/03/25 01/03/25 release polyethylene glycol 3350 17 17 g PO DAILY PRN constipation 01/03/25 01/03/25 gram/dose oral powder (ClearLax) sennosides 8.6 mg tablet (Natural 17.2 mg PO DAILY PRN constipation 01/03/25 01/03/25 Senna Laxative) sodium chloride 1 gram tablet 1,000 mg PO TID 01/03/25 01/03/25 potassium chloride 20 mEq 60 meq (3 x 20 mEq) PO DAILY #90 01/04/25 tablet,extended release (K-Tab) tabs PHYSICAL EXAM AT DISCHARGE Vital Signs: Vital Signs x48h Temp Pulse Resp BP Pulse Ox 01/05/25 08:11 36.5 C 69 18 140/72 H 96 01/05/25 04:55 36.4 C L 64 20 131/62 H 97 Physical Exam Other/Comments: General Appearance: positive No acute distress and Alert Eyes Bilateral: positive Normal inspection and PERRL ENT: positive ENT inspection nml Neck: positive Nml inspection Respiratory: positive Chest non-tender and Breath sounds nml Cardiovascular: positive Regular rate & rhythm Abdomen: positive Non-tender Back: positive Nml inspection Skin: positive Color nml Extremities: positive Non-tender and No pedal edema (trace) Neurologic/Psychiatric: positive Oriented x3 LABS 01/05/25 05:42 01/05/25 05:42 FOLLOW UP Follow Up: PCP at [facility]. BMP in 3 days!! TIME SPENT Time Spent in Discharge (Minutes): 45 Discharge Plan Discharge Patient Disposition: [facility] DC/Xfer Condition: Stable Prescriptions: New potassium chloride [K-Tab] 20 mEq tablet extended release 60 meq PO DAILY Qty: 90 2RF Continued finasteride 5 MG tablet 1 tab PO DAILY amiodarone 200 mg tablet 200 mg PO DAILY ferrous sulfate [FeroSul] 325 mg (65 mg iron) tablet 325 mg PO DAILY metoprolol succinate 25 mg tablet extended release 24 hr 25 mg PO DAILY alfuzosin 10 mg tablet extended release 24 hr 10 mg PO DAILY omeprazole 20 mg capsule,delayed release(DR/EC) 20 mg PO DAILY Linzess 145 mcg capsule 145 mcg PO DAILY multivitamin Tablet 1 tab PO DAILY sodium chloride 1 gram tablet 1,000 mg PO TID ascorbic acid (vitamin C) [Acerola C] 500 mg tablet,chewable 1 g PO DAILY loratadine 10 mg tablet 10 mg PO DAILY cholecalciferol (vitamin D3) 25 mcg (1,000 unit) tablet 50 mcg PO DAILY atorvastatin [Lipitor] 20 mg tablet 20 mg PO QPM sennosides [Natural Senna Laxative] 8.6 mg tablet 17.2 mg PO DAILY PRN (Reason: constipation) Rx Instructions: day 4 without bm polyethylene glycol 3350 [ClearLax] 17 gram/dose powder 17 g PO DAILY PRN (Reason: constipation) Patient Comments: day 3 of no bm acetaminophen 325 mg tablet 650 mg PO Q4H PRN (Reason: fever or pain) bisacodyl [Dulcolax (bisacodyl)] 10 mg suppository 10 mg OK DAILY PRN (Reason: constipation) Rx Instructions: day 5 of no bm mineral oil [Fleet Mineral Oil] Enema 118 ml OK DAILY PRN (Reason: constipation) Rx Instructions: day 6 of no bm Discontinued amlodipine 5 MG tablet 1 tab PO DAILY Activity Restrictions: assistive device always Diet: Regular Health Concerns: [address] [place] [id number] PATIENT: RAÚL HUDSON PREFERRED NAME: PRONOUNS: MEDICAL RECORD#:[id number] DATE OF :1935 DATE OF SERVICE:01/02/25 cc: [facility] report # [id number] Discharge Summary Admit Date: 01/02/25 Discharge Date: 01/05/25 Discharging Provider: Porsha Ruiz PA-C Primary Care Provider: Carmen Sanabria MD Code Status: Do Not Attempt Resuscitation DIAGNOSES Discharge Diagnoses with Status of Each Condition: Syncope: No syncopal episodes after leaving the emergency department. Cause of syncope remains undiagnosed Atrial fibrillation has been in sinus rhythm for the entirety of his admission Hypokalemia: In need of daily repletion. Recommend repeat BMP in 3 days Hyponatremia: On salt tabs. Recommend NaCl 1 g 3 times daily with recheck BMP in 3 days HPI History of Present Illness: 89-year-old male who presents to the emergency department with a syncopal episode. Recently admitted to [facility] on 12/21/2024. Exact reason for admission is unknown as there is no reliable historian at the bedside. In any event apparently has a history of orthostatic hypotension and recurrent syncope. However got up this afternoon had a bowel movement and as he was moving back over to bed had a syncopal event. Reportedly was hypotensive on scene. Therefore was transferred to the emergency department. Reportedly while in the emergency department had another syncopal episode when attempt was made to stand him upright. Did have orthostatic vital signs taken and these were not positive. EKG is unrevealing as has been telemetry since he has been in the emergency department. Patient is reportedly at his baseline mental status has not shown any other neurologic abnormalities. He is a very poor historian. He is oriented to self only. He does come to us with copy of a POLST which shows DNR selective treatment. His signed the POLST. CONSULTS | PROCEDURES Procedures: Head CT: Mild residual intraparenchymal hemorrhage significantly improved compared to prior other subarachnoid hemorrhage has resolved. No new intracranial hemorrhage Chest x-ray: No acute cardiopulmonary process HOSPITAL COURSE Hospital Course: (1) Syncope: Impression: His syncope has been worked up multiple times. Most recently admitted to [facility] several weeks ago for a syncopal workup. Telemetry shows sinus rhythm without any pauses and some very mild bradycardia with occasional heart rates in the high 50s ( but no mild bradycardia in last 48h). Echocardiogram LVEF 60%. normal right heart, normal pulm pressure EKG in the emergency department shows sinus rhythm. He was on telemetry for the length of his admission. He has a history of implanted loop recorder which was maintained for 1 year and he showed no signs of arrhythmia during that time. His ultimate goal is to return home with his . They live in a trilevel home but his is actively engaged with a real estate internship to sell the home and [place]. Selected Entries 01/04/2509:00 01/05/2509:48 Supine Blood Pressure 167/80 H 143/64 H Supine Heart Rate 79 75 Sitting Blood Pressure 157/78 H 143/75 H Sitting Heart Rate 74 77 Standing Blood Pressure 135/69 H 114/61 Standing Heart Rate 82 85 He had a 30 point drop in SBP on orthostatics 01/05 but was completely asymptomatic. BPs monitored while here, I stopped his amlodipine 5mg daily. (2) Atrial fibrillation: Impression: denies atrial fibrillation. Patient denies atrial fibrillation. Monitoring does not show atrial fibrillation the telemetry strips that I have shows sinus rhythm. Patient however is on amiodarone and metoprolol. All EKGs in our system back as far as 2016 were reviewed. I see sinus rhythm on all of these tracings.He has not shown any atrial fibrillation while he has been here. He may have converted. He is not on anticoagulation nor should he be with a history of intracranial bleeding and a high fall risk. (3) Hypokalemia: He was 3.1 on admission. I have been repleting his K daily. K 3.1 this AM, He has been as low as 2.8 this admit. recommend daily supplementation with KCl 60mEq. BMP in 3d (4) Hyponatremia: Laboratory Tests 01/02/25 01/03/25 01/04/25 16:30 05:29 05:11 Sodium 132 L 134 L 130 L 01/04/25 01/05/25 14:33 05:42 Sodium 130 L 128 L Mild hyponatremia on admission. sodium has been labile. BMP in 3d recommed NaCL 1gm TID . Print Language: Azeri Stand Alone Forms: SNF Discharge"
== END 2025-01-05 12:45 | DRG 312 ==
LOC: ED 15:22 → MS2 15:22
PROVIDERS: ADMIT Physician Assistant Medical; ATTEND Physician Assistant Medical